=== PATIENT | male | born 1970 | race Caucasian/White ===

== ENCOUNTER → 2020-06-30 | Outpatient (CLI) | payer OTHER ==
[~2020-06-30] MED LIST: CYCL10TA2 PO; HYDR-2761 PO; MELO15TA23 PO; TRAZ-123 PO
--- NOTE | 2020-06-30 14:28 | KCIC ---
EXAM: MRI right shoulder DATE: 06/30/2020 8:10 AM COMPARISON: 09/15/2014 INDICATION: Chronic right shoulder pain. Limited range of motion. TECHNIQUE: Multiplanar, multisequence MRI of the right shoulder was performed without contrast. FINDINGS: AC joint degenerative changes are seen. Mild lateral downsloping of the distal acromion. No os acromi maggie. Type I acromion. Subacromial-subdeltoid bursal edema and fluid likely bursitis. High-grade partial-thickness tear of the supraspinatus tendon measuring approximately 1.7 cm in AP di mension with short segment full-thickness perforating component (series 6 image 11). Mild increased s ignal and thickening of the supraspinatus and infraspinatus tendon. Teres minor is intact. Rotator cu ff muscle signal and bulk is normal without fatty atrophy. Intra-articular long head biceps tendon is increased signal likely tendinosis. Trace fluid signal wit hin the posterior-inferior labrum may represent small intrasubstance ganglion or incomplete tear. T1 marrow signal is preserved. No fracture or osteonecrosis. Articular cartilage is grossly preserved . IMPRESSION: 1. There is now a focal full-thickness tear superimposed on a background of high-grade partial-thick ness tear of the supraspinatus tendon which measures 1.7 cm in AP dimension. 2. Subacromial-subdeltoid bursal edema from full-thickness rotator cuff tear. 3. Intra-articular long head biceps tendinosis. 4. Trace fluid signal is seen within the posterior inferior labrum likely represents partial labral tear or degeneration. Electronically signed by: Sameer Rodriguez MD (06/30/2020 2:26 PM) [id number]
== END ==
LOC: KCIC MRI 07:53
PROVIDERS: ATTEND Family Medicine
DX: M75.101 Unspecified rotator cuff tear or rupture of right shoulder, not specified as traumatic (principal)
CPT/HCPCS: 73221